=== PATIENT | male | born 1995 | race Two or more races ===

== ENCOUNTER 2022-03-04 19:39 | Inpatient (IN) | payer SELFPAY ==
[~2022-03-04] VITALS: Ht 172.7 cm; Wt 91.0 kg
[2022-03-04 21:08] LABS: Hematocrit 52.6 % (41.0-53.0); Hemoglobin 17.2 g/dL (13.5-17.5); Mean Corpuscular Hemoglobin 29.5 pg (28.0-32.0); Mean Corpuscular Hgb Conc. 32.6 g/dL (32.0-36.0); Mean Corpuscular Volume 90.5 fL (80.0-100.0); Red Blood Cells 5.82 10^6/uL (4.5-5.90)
[2022-03-04 21:24] LABS: Alanine Aminotransferase 34 U/L (16-61); Albumin 5.4 g/dL (3.4-5.0); Anion Gap 14 (5-15); Aspartate Aminotransferase 22 U/L (15-37); BUN/Creatinine Ratio 7.5; Blood Urea Nitrogen 13 mg/dL (7-18); Calcium 9.3 mg/dL (8.5-10.1); Carbon Dioxide 18 mmol/L (21-32); Chloride 107 mmol/L (98-107); GFR African American 61 mL/min; GFR Non-African American 50 mL/min; Glucose 225 mg/dL (74-106); Potassium 3.5 mmol/L (3.5-5.1); Sodium 139 mmol/L (136-145)
[2022-03-04 21:26] LABS: Alkaline Phosphatase 191 U/L (45-117); Bilirubin, Total 1.9 mg/dL (0.2-1.0); Total Protein 9.7 g/dL (6.4-8.2)
[2022-03-04 21:35] LABS: White Blood Cell 35.1 10^3/uL (4.4-10.8)
[2022-03-04 21:37] LABS: Basophils % (manual) 0 (0.0-2.0); Blast Cells 0; Metamyelocytes % 0; Myelocytes % 0; Promyelocytes % 0
[2022-03-04 21:46] LABS: Band Neutrophils % (manual) 4; Eosinophils % (manual) 1 (0-7); Lymphocytes % (manual) 9 (10.0-50.0); Monocytes % (manual) 5 (0-12); Reactive Lymphocytes 3
[2022-03-04] MEDS ORDERED: SODIUM CHLORIDE 0.9% 1,000 ML IV ONE (22:15)
[2022-03-04] MEDS ORDERED: diazePAM 5 MG TAB PO ONE (22:15)
[2022-03-04] MEDS ORDERED: IOHEXOL 350 MG/ML 100ML IJ ONE (22:19)
[2022-03-04] MEDS ORDERED: FOLIC ACID 1 MG, MULTIPLE VITAMIN 10 ML, MAGNESIUM SULF SDV 50% 8 MEQ, THIAMINE INJ 100... INJ ONE ×5 (23:45)
[2022-03-04] MEDS ORDERED: chlordiazePOXIDE HCL 5 MG CAP PO ONE (23:45)
[2022-03-05] MEDS ORDERED: THIAMINE 100mg/ml INJ (200mg/2ml VIAL) ONE (00:03)
[2022-03-05 03:43] LABS: Urine Bacteria NONE SEEN /hpf (None Seen); Urine Blood Negative /uL (Negative); Urine Mucus FEW (None Seen); Urine WBC 3 /hpf (0 - 3)
[2022-03-05 03:54] LABS: Urine Specific Gravity > 1.050 (1.001-1.035)
[2022-03-05 04:00] VITALS: BP 146/81
[2022-03-05] MEDS ORDERED: chlordiazePOXIDE HCL 25 MG CAP PO PRN ×2 (05:45→06:00)
[2022-03-05] MEDS ORDERED: NITROGLYCERIN 0.4 MG SL TAB SL PRN ×2 (05:45→06:00)
[2022-03-05] MEDS ORDERED: MORPHINE SULFATE INJ 2 MG/ml SYRG IV PRN ×2 (05:45→06:00)
[2022-03-05] MEDS ORDERED: ONDANSETRON HCL 4 MG/2 ML VIAL IV PRN ×2 (05:45→06:00)
[2022-03-05] MEDS ORDERED: TEMAZEPAM 15 MG CAP PO PRN ×2 (05:45→06:00)
[2022-03-05] MEDS ORDERED: ASPirin 81 mg TAB PO SCH ×2 (10:00)
[2022-03-05] MEDS ORDERED: PANTOPRAZOLE 40 MG TAB PO SCH ×2 (10:00)
== END 2022-03-05 05:45 | disposition left against medical advice (07) | DRG 313 ==
LOC: ER 19:39 → EDBD 19:39 → TELE 03-05 05:42 → ER 03-05 05:45 → TELE 03-05 05:57
PROVIDERS: ADMIT Nurse Practitioner; ATTEND Internal Medicine Pulmonary Disease
DX: R07.9 Chest pain, unspecified (principal); F10.239 Alcohol dependence with withdrawal, unspecified; I24.8 Other forms of acute ischemic heart disease; F15.90 Other stimulant use, unspecified, uncomplicated; Z20.822 Contact with and (suspected) exposure to COVID-19
CPT/HCPCS: 36415; 71045; 71275; 80053; 81001; 83880; 84484; 85007; 85027; 93005; 96361; 96365; G0378

== ENCOUNTER 2025-02-11 15:36 | Emergency (ER) | payer MEDICAID, OTHER ==
[~2025-02-11] VITALS: Ht 172.7 cm; Wt 86.3 kg
[2025-02-11] MEDS: levETIRAcetam 500 MG TAB PO ONE (16:22)
[2025-02-11 16:27] VITALS: BP 156/76; PULSE 88; RESP 15; TEMP 98.1; O2SAT 95
--- NOTE | 2025-02-11 16:45 | ED.PDOC ---
History of Present Illness HPI Comments 29-year-old male brought in by EMS with a PMHx Seizures presents s/p seizure activity. Patient had a tonic-clonic seizure according to patient's significant other. Patient has a history of seizures and states that he take Klonopin for them. Patient is back to baseline mentation at this time. Significant other is at bedside. No other symptoms or modifying factors present at this time. Vital signs were stable. Chief Complaint: Seizure Time Seen by MD: 16:38 Reviewed Notes: Nurses Notes, Medications, Allergies Allergies: Coded Allergies: NO KNOWN ALLERGIES (Unverified , 03/04/22) Information Source: Patient, Emergency Med Personnel, Significant Other Mode of Arrival: EMS Severity: Moderate Timing: Minutes Duration: Since onset Prehospital treatment: [facility] Past Medical History PAST MEDICAL HISTORY: Seizures Surgical History: Denies all surgeries Family History Family History: Reviewed,noncontributory to illness Social History Smoker: Non-Smoker Alcohol: Occasionally Drugs: Cocaine, Marijuana, Methamphetamine Lives In: Home Constitutional: denies: chills, diaphoresis, fatigue, fever, malaise, sweats, weakness, others EENTM: denies: blurred vision, double vision, ear bleeding, ear discharge, ear drainage, ear pain, ear ringing, eye pain, eye redness, hearing loss, mouth pain, mouth swelling, nasal discharge, nose bleeding, nose congestion, nose pain, photophobia, tearing, throat pain, throat swelling, voice changes, others Respiratory: denies: cough, hemoptysis, orthopnea, SOB at rest, shortness of breath, SOB with excertion, stridor, wheezing, others Cardiovascular: denies: chest pain, dizzy spells, diaphoresis, Dyspnea on exertion, edema, irregular heart beat, left arm pain, lightheadedness, palpitations, PND, syncope, others Gastrointestinal: denies: abdomen distended, abdominal pain, blood streaked bowels, constipated, diarrhea, dysphagia, difficulty swallowing, hematemesis, melena, nausea, poor appetite, poor fluid intake, rectal bleeding, rectal pain, vomiting, others Genitourinary: denies: burning, dysuria, flank pain, frequency, hematuria, incontinence, penile discharge, penile sore, pain, testicle pain, testicle swelling, urgency, others Neurological: reports: seizure; denies: dizziness, fainting, headache, left sided numbness, left sided weakness, numbness, paresthesia, pre-existing deficit, right sided numbness, right sided weakness, speech problems, tingling, tremors, weakness, others Musculoskeletal: denies: back pain, gout, joint pain, joint swelling, muscle pain, muscle stiffness, neck pain, others Integumetry: denies: bruises, change in color, change in hair/nails, dryness, laceration, lesions, lumps, rash, wounds, others Allergic/Immunocompromised: denies: Difficulty Healing, Frequent Infections, Hives, Itching, others Hematologic/Lymphatic: denies: anemia, blood clots, easy bleeding, easy bruising, swollen glands, others Endocrine: denies: excessive hunger, excessive sweating, excessive thirst, excessive urination, flushing, intolerance to cold, intolerance to heat, unexplained weight gain, unexplained weight loss, others Psychiatric: denies: anxiety, bipolar disorder, depression, hopeless, panic disorder, schizophrenia, sleepless, suicidal, others All Other Systems: Reviewed and Negative Physical Exam General Appearance: No Apparent Distress (Patient was in no distress and asymptomatic at time of evaluation.), Normal HEENT: Normal ENT Inspection, Pharynx Normal, TMs Normal Neck: Full Range of Motion, Non-Tender, Normal, Normal Inspection Respiratory: Chest Non-Tender, Lungs Clear, No Accessory Muscle Use, No Respiratory Distress, Normal Breath Sounds Cardiovascular: No Edema, No JVD, No Murmur, No Gallop, Normal Peripheral Pulses, Regular Rate/Rhythm Breast Exam: Deferred Gastrointestinal: No Organomegaly, Non Tender, No Pulsatile Mass, Normal Bowel Sounds, Soft Genitalia: Deferred Pelvic: Deferred Rectal: Deferred Extremities: No calf tenderness, Normal capillary refill, Normal inspection, Normal range of motion, Non-tender, No pedal edema Musculoskeletal : Apperance: Normal Neurologic: Alert, No Motor Deficits, Normal Affect, Normal Mood, No Sensory Deficits Cerebellar Function: NOT DONE Reflexes: NOT DONE Skin: Dry, Normal Color, Warm Lymphatic: No Adenopathy Was a procedure done? Was a procedure done?: No Differential Dx Considerations may include: Seizure, electrolyte abnormality, sepsis, illicit drug use, urinary tract infections, medication noncompliance X-Ray, Labs, Meds, VS Vital Signs Date Time Temp Pulse Resp B/P (MAP) Pulse Ox O2 Delivery O2 Flow Rate FiO2 02/11/25 16:27 98.1 88 15 156/76 (102) 95 98.1 02/11/25 15:37 98.5 101 16 139/80 (99) 98 98.5 Lab Test 02/11/25 17:04 02/11/25 16:40 02/11/25 16:33 Range/Units POC Glucose 116 H 70-106 mg/dl Urine Color Light-yellow Yellow Urine Clarity Clear Clear Urine pH 6.5 5.0-9.0 Urine Specific [place] 1.014 1.001-1.035 Urine Protein Negative Negative Urine Ketones Trace Negative Urine Blood Negative Negative /uL Urine Nitrite Negative Negative Urine Bilirubin Negative Negative Urine Urobilinogen Normal Negative mg/dL Urine Leukocyte Esterase Negative Negative /uL Urine RBC 1 0 - 3 /hpf Urine Microscopic WBC < 1 0-3 /HPF Urine Squamous Epithelial Cells None seen <5 /hpf Urine Bacteria None seen None Seen /hpf Urine Glucose Normal Normal mg/dL Urine Opiates Screen Neg NEGATIVE Urine Fentanyl Screen Pos NEGATIVE Urine Barbiturates Screen Neg NEGATIVE Urine Phencyclidine Screen Neg NEGATIVE Urine Amphetamines Screen Neg NEGATIVE Urine Benzodiazepines Screen Neg NEGATIVE Urine Cocaine Screen Pos NEGATIVE Urine Cannabinoids Screen Neg NEGATIVE White Blood Count 9.0 4.4-10.8 10^3/uL Red Blood Count 5.03 4.5-5.90 10^6/uL Hemoglobin 15.4 13.5-17.5 g/dL Hematocrit 44.6 41.0-53.0 % Mean Corpuscular Volume 88.7 80.0-100.0 fL Mean Corpuscular Hemoglobin 30.5 28.0-32.0 pg Mean Corpuscular Hemoglobin Concent 34.4 32.0-36.0 g/dL Red Cell Distribution Width 13.2 11.8-14.3 % Platelet Count 185 140-450 10^3/uL Mean Platelet Volume 9.9 6.9-10.8 fL Neutrophils (%) (Auto) 79.1 37.0-80.0 % Lymphocytes (%) (Auto) 14.7 10.0-50.0 % Monocytes (%) (Auto) 5.5 0.0-12.0 % Eosinophils (%) (Auto) 0.3 0.0-7.0 % Basophils (%) (Auto) 0.4 0.0-2.0 % Neutrophils # (Auto) 7.2 1.6-8.6 10 ^3/uL Lymphocytes # (Auto) 1.3 0.4-5.4 10 ^3/uL Monocytes # (Auto) 0.5 0-1.3 10 ^3/uL Eosinophils # (Auto) 0 0-0.8 10 ^3/uL Basophils # (Auto) 0 0-0.2 10 ^3/uL Nucleated Red Blood Cells 0.2 % Sodium Level 142 136-145 mmol/L Potassium Level 3.7 3.5-5.1 mmol/L Chloride Level 109 H 98-107 mmol/L Carbon Dioxide Level 27 20-31 mmol/L Anion Gap 6 5-15 Blood Urea Nitrogen 7 L 9-23 mg/dL Creatinine 0.84 0.700-1.30 mg/dL Glomerular Filtration Rate Calc 120 >90 mL/min BUN/Creatinine Ratio 8.3 L 10.0-20.0 Serum Glucose 79 74-106 mg/dL Calcium Level 10.0 8.7-10.4 mg/dL Current Medications Medications (Trade) Dose Ordered Sig/Nereyda Route Start Time Stop Time Status Last Admin Levetiracetam (Keppra Tablet) 1,500 mg ONCE ONCE PO 02/11/25 16:15 02/11/25 16:16 DC 02/11/25 16:22 X-Ray, Labs, Meds, VS Comment All studies performed the ED were evaluated by me personally. Serum laboratorie s were unremarkable for any systemic concerns and urinalysis was unremarkable for any UTI formation. Tox screen confirmed fentanyl use and cocaine use. Advised patient to stop illicit drug use immediately and follow up with his primary care provider for discussions related to today's visit. Patient will be given a prescription for Keppra at discharge. Time of 1ST Reevaluation: 17:37 Reevaluation 1ST: Improved Consultation: PCP Patient Education/Counseling: Diagnosis, Treatment, Need For Follow Up Family Education/Counseling: Diagnosis, Treatment, Need For Follow Up SEPSIS Sepsis Screen Recent Procedure: No On Antibiotic Therapy: No Respiratory Rate >20: No Heart Rate >90: No Temp<36 C (96.8 F) or >38.3 C: No SBP <90 or MAP <65 mmHG: No New Acute Mental Status Change: No Is the patient on CPAP, BIPAP,: No Vital Signs Date Time Temp Pulse Resp B/P (MAP) Pulse Ox O2 Delivery O2 Flow Rate FiO2 02/11/25 16:27 98.1 88 15 156/76 (102) 95 98.1 02/11/25 15:37 98.5 101 16 139/80 (99) 98 98.5 Laboratory Tests Test 02/11/25 16:33 White Blood Count 9.0 10^3/uL (4.4-10.8) Medications Medications Dose Ordered Sig/Nereyda Route Start Time Stop Time Status Last Admin Dose Admin Levetiracetam 1,500 mg ONCE ONCE PO 02/11/25 16:15 02/11/25 16:16 DC 02/11/25 16:22 Departure 1 Departure Time of Disposition: 17:38 Impression: Primary Impression: Seizure Additional Impression: Illicit drug use Disposition: HOME / SELF CARE / HOMELESS Condition: Stable Additional Instructions: Advised patient utilize his Keppra as directed until completion. Patient should follow up with the primary care provider for discussions related to today's visit. Patient has been advised to cease all illicit drug use immediately and follow up with a support groups such as narcotics [facility]. e-Prescriptions Levetiracetam (Keppra) 1,000 Mg Tab 1 TAB PO BID, #60 TAB 0 Refills Prov: MYRNA PRESSLEY PAC 02/11/25 Discharged With: Self, Friend Critical Care Note Critical Care Time?: No Stability Stability form required: No Heart Score Heart Score: Heart Score Response (Comments) Value History N/A 0 EKG N/A 0 Age N/A 0 Risk Factors N/A 0 Troponin N/A 0 Total 0 I personally scribed for MYRNA PRESSLEY PAC ([email or web address]) on 02/11/25 at 16:45. Electronically submitted by Fernando Trevino ([email or web address]). MYRNA PRESSLEY PAC Feb 11, 2025 16:45
[2025-02-11 16:48] LABS: Hematocrit 44.6 % (41.0-53.0); Hemoglobin 15.4 g/dL (13.5-17.5); Mean Corpuscular Hemoglobin 30.5 pg (28.0-32.0); Mean Corpuscular Volume 88.7 fL (80.0-100.0); Nucleated Red Blood Cells % 0.2 %
[2025-02-11 16:51] LABS: Potassium 3.7 mmol/L (3.5-5.1); Sodium 142 mmol/L (136-145)
[2025-02-11 16:52] LABS: Anion Gap 6 (5-15); Carbon Dioxide 27 mmol/L (20-31)
[2025-02-11 16:53] LABS: Calcium 10.0 mg/dL (8.7-10.4)
[2025-02-11 16:56] LABS: Chloride 109 mmol/L (98-107)
[2025-02-11 16:57] LABS: BUN/Creatinine Ratio 8.3 (10.0-20.0); Glucose 79 mg/dL (74-106)
[2025-02-11 16:59] LABS: Blood Urea Nitrogen 7 mg/dL (9-23)
[2025-02-11 17:08] LABS: Urine Protein, UAD Negative (Negative)
[2025-02-11 17:27] LABS: Amphetamine Screen, Urine Neg (NEGATIVE); Barbiturate Scree,Urine Neg (NEGATIVE); Benzodiazephine Screen, Urine Neg (NEGATIVE); Cannabinoid Screen, Urine Neg (NEGATIVE); Cocaine Screen, Urine Pos (NEGATIVE); Opiate Scree,Urine Neg (NEGATIVE); Phencyclidine Screen, Urine Neg (NEGATIVE)
[2025-02-11] MEDS ORDERED: LEVE100012 PO (17:39)
== END 2025-02-11 17:55 | disposition home or self-care (01) ==
LOC: ER 15:36 → EDBD 15:36 → ER 17:55
DX: R56.9 Unspecified convulsions (principal); F12.90 Cannabis use, unspecified, uncomplicated; F19.90 Other psychoactive substance use, unspecified, uncomplicated; F10.90 Alcohol use, unspecified, uncomplicated; F11.90 Opioid use, unspecified, uncomplicated; F14.90 Cocaine use, unspecified, uncomplicated; Y90.9 Presence of alcohol in blood, level not specified
CPT/HCPCS: 36415; 80048; 80307; 81001; 82947; 82962; 85025